=== PATIENT | male | born 1935 | race Caucasian/White ===

== ENCOUNTER 2016-10-13 05:47 | Day surgery (SDC) | payer MEDICARE, OTHER ==
[2016-10-13] MEDS ORDERED: Dextrose 5%-Lactated Ringers 1,000 ML IV SCH (06:15)
[2016-10-13] MEDS ORDERED: Lidocaine 1% 50 ML MDV ONE (06:35)
[2016-10-13] MEDS ORDERED: Bupivacaine 0.5%/EPINEPHrine 1:200,000 50 ML MDV ONE (06:35)
[2016-10-13] MEDS ORDERED: Propofol 200 MG/20 ML SDV ONE ×2 (07:11→07:50)
[2016-10-13] MEDS ORDERED: Midazolam 1 MG/ML 2 ML SDV ONE (07:12)
[2016-10-13] MEDS ORDERED: fentaNYL 100 MCG/2 ML SDV ONE (07:12)
[2016-10-13] MEDS ORDERED: Bacitracin Oint 1 GM U/D Packet ONE ×2 (07:22→07:26)
[2016-10-13 09:34] VITALS: BP 157/66
--- NOTE | 2016-10-19 08:28 | OR ---
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 PROCEDURE: 1. Excision of a skin lesion behind left ear with layered closure (lesion length 1.3 cm, incision length 2.3 cm). 2. Excision of ulcerated skin lesion, left baptist (lesion length 1.6 cm, incision length 2.1 cm). 3. Excision of ulcerated lesion, dorsum of right wrist (lesion length 1.7 cm and incision length 3.1 cm). 4. Excision of skin lesion behind the right ear (lesion length 2.3 cm and incision length 3.1 cm). ANESTHESIA: IV sedation plus local. BURNER SHAFT: JOHN Colon. INDICATIONS FOR PROCEDURE: This is an 81-year-old old male presenting with multiple skin lesions from the facial area, some of which are obviously malignant, some of which are atypical. Plan is to proceed with excision of these with layered closure, specifically with the lesion behind the left ear. This has a broad area of peeled cancerization as a central ulcerated region and the plan will be to proceed with excision of that knowing that there may be positive margins, which could be treated with additional excisions over time and/or liquid nitrogen treatment. Otherwise, potential risks of the procedure including bleeding, infection, possible need for additional treatment were reviewed in general, and the patient wishes to proceed. DETAILS OF PROCEDURE: The patient was taken to the operating room and placed in a supine position. Initially, the patient's left side of the face was prepped and draped including the ear, area behind the left ear which would begin with the area that was most surely malignant. An incision around 1.3 cm lesion measuring 2.3 cm was made and was carried down through the skin and subcutaneous tissue, and the lesion removed with what appeared to be a clear margin on its deep aspect. The incision then closed with some 5-0 Vicryl stitch deep and a 5-0 Prolene skin stitch. Attention was then taken to left baptist. In this area he had a central ulcer in it it being malignant. The lesion measured 1.6 cm in the elliptical incision 2.1 cm was made around. This was closed as per the lesion behind the ear. Next, the area of the dorsum of the right wrist was prepped and draped, and incision of 3.1 cm was made around the lesion which measured 1.7 cm. This has subsided ulceration within it and was closed as per the previous lesions and finally a skin lesion behind the right ear, which had more of atypical keratotic lesion without any ulcerations per se was removed, this lesion measured 2.3 cm and incision length was 3.1 cm. In each case, these incisions were closed with 5-0 Vicryl stitch deep and a 5-0 Prolene skin stitch, and the area had been anesthetized with 1% lidocaine mixed with Marcaine. Bacitracin was applied to each of these other than the bandage over the wrist lesion and the patient was taken to the recovery room in satisfactory condition. Mao Hare MD /[id number]
== END 2016-10-13 09:45 | disposition home or self-care (01) ==
LOC: JP.SDS 05:47
PROVIDERS: ATTEND Surgery
DX: C44.229 Squamous cell carcinoma of skin of left ear and external auricular canal (principal); C79.2 Secondary malignant neoplasm of skin; I25.10 Atherosclerotic heart disease of native coronary artery without angina pectoris; Z95.1 Presence of aortocoronary bypass graft; E03.9 Hypothyroidism, unspecified; I10 Essential (primary) hypertension
CPT/HCPCS: 11602; 11642; 11644; 12052; J2250; J2704; J3010; J7042; 88305; 88341; 88342

== ENCOUNTER 2016-11-10 16:45 | Emergency (ER) | payer MEDICARE, OTHER ==
[2016-11-10] MEDS ORDERED: Lidocaine 1% 20 ML MDV INJECT ONE (17:14)
[2016-11-10] MEDS ORDERED: Bacitracin Oint 1 GM U/D Packet TOP ONE (17:14)
[2016-11-10 17:17] VITALS: BP 191/87
--- NOTE | 2016-11-10 17:19 | EDM.PDOC ---
ED HPI GENERAL MEDICAL PROBLEM - General Chief Complaint: ENT Problem Stated Complaint: HAD SURGERY ON EAR/BLEEDING Time Seen by Provider: 11/10/16 17:13 Source of Information: Reports: Patient, Family History Limitations: Reports: No Limitations - History of Present Illness INITIAL COMMENTS - FREE TEXT/NARRATIVE: 2 days ago pt had a wider removal of area where he had skin ca. He had some bleeding last nite and he finally got it stopped. Today he was working in the garden and he started bleeding profusely. The area involved is by the left ear - post. Onset: Today Duration: Hour(s):, Getting Worse, Other ( This started bleeding very heaVILY. ) Location: Reports: Face Associated Symptoms: Reports: No Other Symptoms Left Ear Pain Score (Numeric/FACES): 7 - Related Data Allergies Allergy/AdvReac Type Severity Reaction Status Date / Time No Known Allergies Allergy Verified 11/10/16 17:17 Home Meds: Home Meds Levothyroxine 75 mcg PO DAILY 03/29/14 [History] Colchicine/Probenecid [Probenecid-Colchicine Tabs] 1 tab PO DAILY 05/31/14 [ History] Acetaminophen/HYDROcodone [[place] 325-5 MG] 1 tab PO Q4H 01/01/15 [History] Doxazosin [Cardura] 4 mg PO DAILY 01/01/15 [History] Multivitamin [Multivitamins] 1 tab PO DAILY 01/01/15 [History] Aspirin [Children's Aspirin] 81 mg PO DAILY 10/10/16 [History] Clopidogrel [Plavix] 75 mg PO DAILY 10/10/16 [History] Lisinopril 5 mg PO DAILY 10/10/16 [History] Metoprolol Tartrate 12.5 mg PO BID 10/10/16 [History] Nitroglycerin [Nitrostat] 0.4 mg SL ASDIRECTED PRN 10/10/16 [History] atorvaSTATin [Lipitor] 80 mg PO BEDTIME 10/10/16 [History] Ibuprofen 200 mg PO DAILY PRN 10/13/16 [History] Past Medical History HEENT History: Reports: Cataract, Hard of Hearing Cardiovascular History: Reports: Angina, High Cholesterol, Hypertension Genitourinary History: Reports: BPH, Renal Calculus Other Genitourinary History: trouble urinating with supra pubic cath placed in the past Musculoskeletal History: Reports: Arthritis, Gout Neurological History: Reports: Migraines, Other (See Below) Other Neuro History: 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 Endocrine/Metabolic History: Reports: Hypothyroidism Hematologic History: Reports: Blood Transfusion(s) Dermatologic History: Reports: Other (See Below) Other Dermatologic History: lesion behind ears and right wrist - Past Surgical History Cardiovascular Surgical History: Reports: Coronary Artery Bypass GI Surgical History: Reports: Colonoscopy, Hernia, Inguinal Male Surgical History: Reports: Other (See Below) Other Male Surgeries/Procedures: surgery to remove stone from left kidney Musculoskeletal Surgical History: Reports: Other (See Below) Other Musculoskeletal Surgeries/Procedures:: right ankle fracture Social & Family History - Tobacco Use Smoking Status *Q: Never Smoker Second Hand Smoke Exposure: No - Caffeine Use Caffeine Use: Reports: Coffee - Alcohol Use Days Per Week of Alcohol Use: 0 - Recreational Drug Use Recreational Drug Use: No ED ROS ENT - Review of Systems Review Of Systems: See Below Constitutional: Reports: No Symptoms HEENT: Reports: Other (PT HAD AN EXCITION OF SOME AREA OF THE EDGES WHERE IS CA WAS. tHIS WS DONE AT THE OFFICE BY dR Aiden Marie. tODAY HE WAS WORKING IN THE GARDEN AND HE STARTED TO POUR OUT BLOOD FROM THE SITE. ) Cardiovascular: Reports: No Symptoms Endocrine: Reports: No Symptoms : Reports: No Symptoms Musculoskeletal: Reports: No Symptoms Skin: Reports: No Symptoms ED EXAM, ENT - Physical Exam Exam: See Below Text/Narrative:: PT ARRIVED BLEEDING SIGNIFICANTLY FROM THE LEFT EAR WHERE HE HAD AN INCISION AND REMOVAL OF SOME AREA WHERE HE HAD A SKIN ca. Exam Limited By: No Limitations General Appearance: Alert, Anxious Ears: Other ( LEFT EAR HAS AN INCISION AND THERE IS A SIG PUMPER IN THE SITE. tHE PT IS COVERED WITH BLOOD. ) Nose: Normal Inspection Mouth/Throat: Normal Inspection Head: Atraumatic Neck: Carotid Bruit Respiratory/Chest: No Respiratory Distress Course - Vital Signs Last Recorded V/S: Last Vital Signs Temp 36.4 C 11/10/16 17:03 Pulse 72 11/10/16 17:03 Resp 16 11/10/16 17:03 BP 191/87 H 11/10/16 17:03 Pulse Ox 96 11/10/16 17:03 - Orders/Labs/Meds Meds: Medications Discontinued Medications Generic Name Dose Route Start Last Admin Trade Name Freq PRN Reason Stop Dose Admin Bacitracin 1 dose 11/10/16 17:14 11/10/16 17:32 Bacitracin Oint 1 Gm TOP 11/10/16 17:15 1 dose ONETIME ONE Administration Lidocaine HCl 20 ml 11/10/16 17:14 11/10/16 17:32 Xylocaine 1% INJECT 11/10/16 17:15 20 ml ONETIME ONE Administration - Re-Assessments/Exams Free Text/Narrative Re-Assessment/Exam: 11/10/16 17:49 dR Ivory CAM AND STITCHED THE PT UP AND RE APPLIED A PRESSURE DRESSING. Departure - Departure Time of Disposition: 17:50 Disposition: Home, Self-Care 01 Condition: Fair Clinical Impression: Bleeding from wound - Discharge Information Forms: ED Department Discharge Care Plan Goals: KEEP PREVIOUS APPTS SET UP WITH dR Marie. lEAVE THE PRESSURE DRESSING ON UNTIL TOMORROW AFTERNOON.
--- NOTE | 2016-11-11 11:42 | OR ---
DATE OF PROCEDURE: 11/10/2016 PROCEDURE: Repair of bleeding laceration of left ear, posterior. INDICATIONS: A pleasant 81-year-old male, who a had a biopsy performed of his posterior ear by Dr. Hare and the patient has developed a small amount of bleeding. PREOPERATIVE DIAGNOSIS: Postsurgical bleeding. POSTOPERATIVE DIAGNOSIS: Postsurgical bleeding. RISK: Risks, benefits, alternatives, and limitations including, but not limited to infection and bleeding were explained to the patient and he wished to proceed. PROCEDURE IN DETAIL: The patient was placed in upright position. The area was prepped and draped. The bleeding was noted to be arterial. This was closed with a 3-0 Prolene suture in a [id number] fashion. A 2nd [id number] stitch was then placed over the same location. This was inspected for 1 minute and there was no active bleeding. Bacitracin and dressings were applied. The patient will follow up with Dr. Hare and myself in the next 7 to 14 days. Tyler Meneses MD /[id number]
== END 2016-11-10 18:20 | disposition home or self-care (01) ==
LOC: JP.ED 16:45
DX: H95.41 Postprocedural hemorrhage of ear and mastoid process following a procedure on the ear and mastoid process (principal); E78.00 Pure hypercholesterolemia, unspecified; I10 Essential (primary) hypertension; M19.90 Unspecified osteoarthritis, unspecified site; E03.9 Hypothyroidism, unspecified; Z95.1 Presence of aortocoronary bypass graft; Z98.890 Other specified postprocedural states; Z79.82 Long term (current) use of aspirin; Z79.899 Other long term (current) drug therapy; Z85.828 Personal history of other malignant neoplasm of skin
CPT/HCPCS: 99283

== ENCOUNTER 2018-09-10 10:57 | Emergency (ER) | payer MEDICARE, OTHER ==
[2018-09-10] MEDS ORDERED: Sodium Chloride 0.9% 1,000 ML IV SCH (11:15)
[2018-09-10] MEDS ORDERED: Sodium Chloride 0.9% 10 ML Syringe FLUSH PRN ×2 (11:15→12:19)
--- NOTE | 2018-09-10 12:23 | EDM.PDOC ---
ED HPI GENERAL MEDICAL PROBLEM - General Chief Complaint: General Stated Complaint: FROM CLINIC LOTS OF PAIN IN CHEST AREA Time Seen by Provider: 09/10/18 12:00 Source of Information: Reports: Patient, Family (step daughter and phone call from clinic provider at [facility]) History Limitations: Reports: Other (hard of hearing and advanced age) - History of Present Illness INITIAL COMMENTS - FREE TEXT/NARRATIVE: Very pleasant 83-year-old gentleman presents from clinic today due to worsening of abdominal discomfort. Patient has had progressive worsening abdominal discomfort with increased shortness of breath with slight chest pain with exertion and difficulty catching his breath. Patient states the pain today feels different from his urinary retention symptoms. Patient is slightly nauseated has had decreased appetite and pain is worse with activity. 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 He got a reactive lymph node in the left posterior auricular posterior cervical chain in which his primary care provider offered removal the patient has chose to leave well enough alone, as the reactive lymph node is not bothersome for him. Patient states he just feels "all in" with general malaise and weakness with not feeling well over the course of the last number of weeks to months. Patient has a long-standing history of urethral strictures and urinary retention. Patient has had numerous urologic procedures. He is able to empty his bladder and has declined further treatment for urethral strictures, if he is able to urinate he does not want any procedures and a Lou catheter needs to be placed under sedation. 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) (antibiotic from Urgent care last week ) Lower Abdomen Pain Score (Numeric/FACES): 8 - Related Data Allergies Allergy/AdvReac Type Severity Reaction Status Date / Time No Known Allergies Allergy Verified 09/10/18 11:32 Home Meds: Home Meds Levothyroxine 75 mcg PO DAILY 03/29/14 [History] Colchicine/Probenecid [Probenecid-Colchicine Tabs] 1 tab PO DAILY 05/31/14 [ History] Doxazosin [Cardura] 4 mg PO DAILY 01/01/15 [History] Multivitamin [Multivitamins] 1 tab PO DAILY 01/01/15 [History] Aspirin [Children's Aspirin] 81 mg PO DAILY 10/10/16 [History] Lisinopril 20 mg PO DAILY 10/10/16 [History] Metoprolol Tartrate 12.5 mg PO BID 10/10/16 [History] Nitroglycerin [Nitrostat] 0.4 mg SL ASDIRECTED PRN 10/10/16 [History] atorvaSTATin [Lipitor] 40 mg PO BEDTIME 10/10/16 [History] amLODIPine [Norvasc] 5 mg PO DAILY 12/15/17 [History] Acetaminophen/HYDROcodone [[place] 325-5 MG] 1 - 2 tab PO Q6H PRN 10 Days #40 tab 09/10/18 [Rx] Ciprofloxacin HCl [Cipro] 500 mg PO BID 09/10/18 [History] Codeine/guaiFENesin [guaiFENesin-Codeine Syrup] 10 ml PO Q4H PRN 09/10/18 [ History] fentaNYL [Duragesic] 12 mcg TD Q72H 7 Days #3 patch 09/10/18 [Rx] Past Medical History HEENT History: Reports: Cataract, Hard of Hearing Other HEENT History: SURGICAL BX YESTERDAY BEHIND L EAR WITH POST OP BLEEDING PROBLEMS Cardiovascular History: Reports: Angina, High Cholesterol, Hypertension Genitourinary History: Reports: BPH, Renal Calculus Other Genitourinary History: trouble urinating with supra pubic cath placed in the past Musculoskeletal History: Reports: Arthritis, Gout Neurological History: Reports: Migraines, Other (See Below) Other Neuro History: 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 Endocrine/Metabolic History: Reports: Hypothyroidism Hematologic History: Reports: Blood Transfusion(s) Oncologic (Cancer) History: Reports: Other (See Below) Other Oncologic History: skin CA Lump in l lumph node. Dermatologic History: Reports: Other (See Below) Other Dermatologic History: lesion behind ears and right wrist. shingles past 3 years - Infectious Disease History Infectious Disease History: Reports: Chicken Pox, Measles, Mumps, Shingles - Past Surgical History Cardiovascular Surgical History: Reports: Coronary Artery Bypass GI Surgical History: Reports: Colonoscopy, Hernia, Inguinal Male Surgical History: Reports: Other (See Below) Other Male Surgeries/Procedures: surgery to remove stone from left kidney Musculoskeletal Surgical History: Reports: Other (See Below) Other Musculoskeletal Surgeries/Procedures:: right ankle fracture Social & Family History - Tobacco Use Smoking Status *Q: Never Smoker Second Hand Smoke Exposure: No - Caffeine Use Caffeine Use: Reports: Coffee, Soda - Recreational Drug Use Recreational Drug Use: No ED ROS GENERAL - Review of Systems Review Of Systems: See Below Constitutional: Reports: Malaise, Fatigue, Decreased Appetite HEENT: Reports: No Symptoms Respiratory: Reports: Shortness of Breath, Cough Cardiovascular: Reports: Orthopnea Endocrine: Reports: Fatigue GI/Abdominal: Reports: Abdominal Pain, Decreased Appetite, Distension, Nausea : Reports: Hematuria Skin: Reports: Lumps Neurological: Reports: Difficulty Walking, Weakness (remainder of symptoms reviewed and negative ) Psychiatric: Reports: No Symptoms Hematologic/Lymphatic: Reports: Easy Bleeding Immunologic: Reports: No Symptoms ED EXAM, GENERAL - Physical Exam Exam: See Below Exam Limited By: Other (hard of hearing and memory) General Appearance: Alert, WD/WN, Moderate Distress (due to abdominal pain) Eye Exam: Bilateral Eye: EOMI, Normal Inspection, PERRL Ears: Normal External Exam, Normal Canal, Normal TMs. No: Hearing Grossly Normal (hard of hearing ) Ear Exam: Bilateral Ear: Auricle Normal, Canal Normal, TM normal Nose: Normal Inspection, Normal Mucosa, No Blood Throat/Mouth: Normal Inspection, Normal Lips, Normal Gums, Normal Oropharynx, Normal Voice, No Airway Compromise Head: Normocephalic Neck: Normal Inspection, Supple, Lymphadenopathy (L) (postier auricular vs posterior cervical chain) Respiratory/Chest: No Respiratory Distress, Lungs Clear, Normal Breath Sounds, No Accessory Muscle Use. No: Chest Non-Tender (anterior chest discomfort reproduced with palpation) GI/Abdominal: Soft, Guarding, Rigid, Rebound, Tender (generalized with referred and rebound discomfort with focal left lower abdominal discomfort ), Abnormal Bowel Sounds (decreased ) (Male) Exam: No Hernia (acute ), Other (history of previous surgery ) Rectal (Males) Exam: Deferred Extremities: Normal Inspection, Normal Range of Motion, Non-Tender, Normal Capillary Refill, No Pedal Edema Neurological: Alert, Oriented, CN II-XII Intact, No Motor/Sensory Deficits, Memory Loss Recent Events, Abnormal Gait Psychiatric: Normal Affect, Normal Mood Skin Exam: Warm, Dry, Intact, Normal Color, No Rash EKG INTERPRETATION EKG Date: 09/10/18 Time: 13:31 Rhythm: NSR [place]: Normal P-Wave: Present QRS: Normal ST-T: Other QT: Normal Comparison: No Change (Compared to Dec 2014. No acute change noted.) Course - Vital Signs Last Recorded V/S: Last Vital Signs Temp 36.7 C 09/10/18 13:31 Pulse 83 09/10/18 14:14 Resp 16 09/10/18 13:31 BP 131/61 09/10/18 14:14 Pulse Ox 83 L 09/10/18 14:14 - Orders/Labs/Meds Orders: Active Orders 24 hr Category Date Time Status EKG Documentation Completion [RC] ASDIRECTED Care 09/10/18 11:16 Active Peripheral IV Care [RC] . DIRECTED Care 09/10/18 11:16 Active Consult to Hospice [CONS] Routine Cons 09/10/18 15:32 Active Abdomen Pelvis w Cont [CT] Stat Exams 09/10/18 11:16 Taken CULTURE BLOOD [BC] Urgent Lab 09/10/18 11:25 Received CULTURE BLOOD [BC] Urgent Lab 09/10/18 11:42 Received PATIENT RETYPE [BBK] Stat Lab 09/10/18 11:42 Results RED BLOOD CELLS LP [BBK] Stat Lab 09/10/18 11:42 Results TYPE AND SCREEN [BBK] Stat Lab 09/10/18 11:42 Results Iopamidol [Isovue-370 (76%)] Med 09/10/18 12:30 Active 75 ml IV . DIRECTED Sodium Chloride 0.9% [Normal Saline] 1,000 ml Med 09/10/18 11:15 Active IV ASDIRECTED Sodium Chloride 0.9% [Normal Saline] 100 ml Med 09/10/18 12:30 Active IV ASDIRECTED Sodium Chloride 0.9% [Saline Flush] Med 09/10/18 11:15 Active 10 ml FLUSH ASDIRECTED PRN Sodium Chloride 0.9% [Saline Flush] Med 09/10/18 12:19 Active 10 ml FLUSH ONETIME PRN fentaNYL [Duragesic] Med 09/10/18 15:30 Active 12 mcg TRDERM Q72H Blood Culture x2 Reflex Set [OM.PC] Urgent Oth 09/10/18 11:14 Ordered Peripheral IV Insertion Adult [OM.PC] Stat Oth 09/10/18 11:15 Ordered EKG 12 Lead [EK] Stat Ther 09/10/18 11:15 Ordered Medication Orders Fentanyl (Duragesic) 12 mcg TRDERM Q72H [place] Last Admin: 09/10/18 15:55 Dose: 12 mcg Sodium Chloride (Normal Saline) 1,000 mls @ 500 mls/hr IV ASDIRECTED [place] Last Admin: 09/10/18 11:46 Dose: 500 mls/hr Sodium Chloride (Normal Saline) 100 mls @ 4 mls/sec IV ASDIRECTED [place] Last Admin: 09/10/18 13:06 Dose: 4 mls/sec Iopamidol (Isovue-370 (76%)) 75 ml IV . DIRECTED [place] Last Admin: 09/10/18 13:06 Dose: 75 ml Sodium Chloride (Saline Flush) 10 ml FLUSH ASDIRECTED PRN PRN Reason: Keep Vein Open Last Admin: 09/10/18 18:17 Dose: 10 ml Sodium Chloride (Saline Flush) 10 ml FLUSH ONETIME PRN PRN Reason: per radiology protocol Last Admin: 09/10/18 13:06 Dose: 10 ml Labs: Laboratory Tests 09/10/18 09/10/18 09/10/18 Range/Units 11:15 11:42 11:42 WBC 9.5 (4.5-11.0) K/uL RBC 3.07 L (4.30-5.90) M/uL Hgb 8.2 L D (12.0-15.0) g/dL Hct 27.1 L (40.0-54.0) % MCV 88 (80-98) fL MCH 27 (27-31) pg MCHC 30 L (32-36) % Plt Count 303 (150-400) K/uL Neut % (Auto) 82 H (36-66) % Lymph % (Auto) 6 L (24-44) % [place]ine % (Auto) 11 H (2-6) % Eos % (Auto) 1 L (2-4) % Baso % (Auto) 0 (0-1) % PT 12.7 H (9.5-12.0) sec INR 1.16 (0.80-1.20) Sodium (140-148) mmol/L Potassium (3.6-5.2) mmol/L Chloride (100-108) mmol/L Carbon Dioxide (21-32) mmol/L Anion Gap (5.0-14.0) mmol/L BUN (7-18) mg/dL Creatinine (0.8-1.3) mg/dL Est Cr Clr Drug Dosing Estimated GFR (MDRD) (>60) Glucose (74-106) mg/dL Lactic Acid (0.4-2.0) mmol/L Calcium (8.5-10.1) mg/dL Total Bilirubin (0.2-1.0) mg/dL AST (15-37) U/L ALT (12-78) U/L Alkaline Phosphatase (46-116) U/L Troponin I < 0.017 (0.000-0.056) ng/mL C-Reactive Protein 19.39 H (0.0-0.3) mg/dL Total Protein (6.4-8.2) g/dL Albumin (3.4-5.0) g/dL Globulin (2.3-3.5) g/dL Albumin/Globulin Ratio (1.2-2.2) Lipase (73-393) U/L Blood Type Gel Antibody Screen Crossmatch 09/10/18 09/10/18 09/10/18 Range/Units 11:42 11:42 11:42 WBC (4.5-11.0) K/uL RBC (4.30-5.90) M/uL Hgb (12.0-15.0) g/dL Hct (40.0-54.0) % MCV (80-98) fL MCH (27-31) pg MCHC (32-36) % Plt Count (150-400) K/uL Neut % (Auto) (36-66) % Lymph % (Auto) (24-44) % Josephine % (Auto) (2-6) % Eos % (Auto) (2-4) % Baso % (Auto) (0-1) % PT (9.5-12.0) sec INR (0.80-1.20) Sodium 138 L (140-148) mmol/L Potassium 3.9 (3.6-5.2) mmol/L Chloride 104 (100-108) mmol/L Carbon Dioxide 22 (21-32) mmol/L Anion Gap 15.9 H (5.0-14.0) mmol/L BUN 38 H D (7-18) mg/dL Creatinine 1.4 H D (0.8-1.3) mg/dL Est Cr Clr Drug Dosing TNP Estimated GFR (MDRD) 48 L (>60) Glucose 112 H (74-106) mg/dL Lactic Acid 2.0 (0.4-2.0) mmol/L Calcium 8.6 (8.5-10.1) mg/dL Total Bilirubin 0.7 (0.2-1.0) mg/dL AST 86 H D (15-37) U/L ALT 37 D (12-78) U/L Alkaline Phosphatase 384 H D (46-116) U/L Troponin I (0.000-0.056) ng/mL C-Reactive Protein (0.0-0.3) mg/dL Total Protein 6.0 L (6.4-8.2) g/dL Albumin 1.9 L (3.4-5.0) g/dL Globulin 4.1 H (2.3-3.5) g/dL Albumin/Globulin Ratio 0.5 L (1.2-2.2) Lipase 48 L (73-393) U/L Blood Type O NEGATIVE Gel Antibody Screen Negative Crossmatch See Detail Meds: Medications Generic Name Dose Route Start Last Admin Trade Name Freq PRN Reason Stop Dose Admin Fentanyl 12 mcg 09/10/18 15:30 09/10/18 15:55 Duragesic TRDERM 12 mcg Q72H [place] Administration Sodium Chloride 1,000 mls @ 500 mls/hr 09/10/18 11:15 09/10/18 11:46 Normal Saline IV 500 mls/hr ASDIRECTED [place] Administration Sodium Chloride 100 mls @ 4 mls/sec 09/10/18 12:30 09/10/18 13:06 Normal Saline IV 4 mls/sec ASDIRECTED [place] Administration Iopamidol 75 ml 09/10/18 12:30 09/10/18 13:06 Isovue-370 (76%) IV 75 ml . DIRECTED [place] Administration Sodium Chloride 10 ml 09/10/18 11:15 09/10/18 18:17 Saline Flush FLUSH 10 ml ASDIRECTED PRN Administration Keep Vein Open Sodium Chloride 10 ml 09/10/18 12:19 09/10/18 13:06 Saline Flush FLUSH 10 ml ONETIME PRN Administration per radiology protocol Discontinued Medications Generic Name Dose Route Start Last Admin Trade Name [place] PRN Reason Stop Dose Admin Hydrocodone Bitart/Acetaminophen 2 tab 09/10/18 17:47 09/10/18 18:08 [place] 325-5 Mg PO 09/10/18 17:48 2 tab ONETIME ONE Administration Fentanyl 25 mcg 09/10/18 12:25 09/10/18 12:30 Sublimaze IVPUSH 09/10/18 12:26 25 mcg ONETIME ONE Administration Fentanyl 25 mcg 09/10/18 15:17 09/10/18 15:46 Sublimaze IVPUSH 09/10/18 15:18 25 mcg ONETIME ONE Administration Fentanyl 50 mcg 09/10/18 17:54 09/10/18 18:10 Sublimaze IVPUSH 09/10/18 17:55 50 mcg ONETIME ONE Administration Lidocaine 700 mg 09/10/18 12:25 09/10/18 13:29 Lidoderm 5% TOP 09/10/18 12:26 700 mg ONETIME ONE Administration - Re-Assessments/Exams Free Text/Narrative Re-Assessment/Exam: Visit Evaluation/Treatment Course: Triage and Nursing notes reviewed. EPIC reviewed for information regarding Past Medical History, Surgical History, Medications, Allergies and Immunizations. IV access requested and after successful IV access obtained patient assess for medical need of IV medication and/or fluids. Appropriate blood test ordered based on chief complaint and medical examination. Discussed medications given. I am suspicious regarding patient's acute abdominal pain that he has diverticulitis hopefully with no perforation or abscess. Bedside ultrasound was completed of his abdomen he does have a distended bladder I predict proximal a 700 mL. Patient has a history of urinary retention and significant complications from urethral strictures and which she has had a suprapubic catheter and needed to be tapped to empty his bladder previously. Patient states he has significant scarring in his urethra therefore a Lou if needed will need to be placed under anesthesia. Patient likely has bladder colonization due to recurrent urologic procedures therefore patient always has a positive urine culture and antibiotics should not be initiated unless patient has systemic symptoms including fever, nausea lightheadedness or concerns regarding early sepsis. Laboratory results reviewed. D-dimer is elevated, hemoglobin is low, INR is mildly elevated I'm concerned the patient has diverticulitis hopefully without perforation or abscess and patient may have a PE, pneumonia or underlying cancer secondary to reactive lymph node in the left postauricular/ post cervical chain. Possible skin versus long or abdominal cancer with metastatic disease. Patient has borderline renal function but IVF given to protect is renal function, I felt benefit of IV contrast outweighs risk due to acute abdomen with chest pressure concerns. 09/10/18 12:15 POINT OF CARE ULTRASOUND- Transabdominal Indication: abdominal pain, pressure concern for urinary outflow obstruction. Findings: A bedside ultrasound was performed, and interpreted by myself. Moderate bladder distention noted with discomfort over abdomen with exam. Image obtained and reviewed with the patient at bedside and saved, when possible. Patient tolerated the procedure well. 09/10/18 13:09 09/10/18 13:32 Free Text/Narrative Re-Assessment/Exam: I spoke with patient and stepdaughter regarding CT findings concerning for cancer with metastatic disease involving both liver and lungs. I offered transfer to [facility] for oncology and urology consultation regarding chemotherapy, radiation with biopsy management. Patient was also offered admission for pain management and consult hospice care locally and discuss comfort management. Patient's is tearful and understanding of the diagnosis. His stepdaughter's taking care of some of his issues at home and will sure someone is with him. I spoke to the patient a little bit further and he would really like to be discharged home. Consult for hospice care is completed, and the department. Patient is given IV dose of fentanyl along with a Duragesic patch 12 g for pain management and norco for break through pain. Patient states his pain is manageable and obviously much worse with movement. Plan is discharge home with hospice and medications for pain management. Follow up with primary care provider later this week to address any concerns and manage pain additional comfort care per hospitalist. 09/10/18 17:49 09/10/18 18:27 Departure - Departure Time of Disposition: 18:21 Disposition: DC/Tfer to Hospice - Home 50 Condition: Fair Clinical Impression: Acute abdominal pain, Enlarged lymph node in neck, Cancer associated pain, Need for comfort care - Discharge Information Prescriptions: Acetaminophen/HYDROcodone [[place] 325-5 MG] 1 - 2 tab PO Q6H PRN 10 Days #40 tab PRN Reason: Pain fentaNYL [Duragesic] 12 mcg TD Q72H 7 Days #3 patch Instructions: Abdominal Pain, Adult, Palliative Care, End-of-Life Care, Hospice Referrals: Bon Garcia MD [Primary Care Provider] - Forms: ED Department Discharge Additional Instructions: 1. Discontinue Ciprofloxacin and Robitussin AC. 2. Leave Pain patch in place until am, remove old patch and replace with new patch (your Clinic provider may change the dose or have to place two patches. 3. [place] 5/325 1-2 tablets every 4-6 hours as needed for moderate to severe pain. 4. Use Miralax and/or Colace for the prevention of Constipation with pain medications. 5. Continue current medications until directed to change of discontinue medications. 6. Follow-up with PCP with week to discuss pain management and care. - Problem List & Annotations (1) Acute abdominal pain SNOMED Code(s): 616088476 Code(s): R10.9 - UNSPECIFIED ABDOMINAL PAIN Status: Acute Current Visit: Yes (2) Enlarged lymph node in neck SNOMED Code(s): 30529971 Code(s): R59.0 - LOCALIZED ENLARGED LYMPH NODES Status: Acute Current Visit: Yes (3) Cancer associated pain SNOMED Code(s): 47494558433331 Code(s): G89.3 - NEOPLASM RELATED PAIN (ACUTE) (CHRONIC) Status: Acute Current Visit: Yes (4) Need for comfort care SNOMED Code(s): 102541740, 080499508 Code(s): ZZA6432 - Status: Acute Current Visit: Yes - My Orders Last 24 Hours: My Active Orders 09/10/18 11:14 Blood Culture x2 Reflex Set [OM.PC] Urgent 09/10/18 11:15 Sodium Chloride 0.9% [Normal Saline] 1,000 ml IV ASDIRECTED Sodium Chloride 0.9% [Saline Flush] 10 ml FLUSH ASDIRECTED PRN Peripheral IV Insertion Adult [OM.PC] Stat EKG 12 Lead [EK] Stat 09/10/18 11:16 EKG Documentation Completion [RC] ASDIRECTED Peripheral IV Care [RC] . DIRECTED Abdomen Pelvis w Cont [CT] Stat 09/10/18 11:25 CULTURE BLOOD [BC] Urgent 09/10/18 11:42 CULTURE BLOOD [BC] Urgent PATIENT RETYPE [BBK] Stat RED BLOOD CELLS LP [BBK] Stat TYPE AND SCREEN [BBK] Stat 09/10/18 12:19 Sodium Chloride 0.9% [Saline Flush] 10 ml FLUSH ONETIME PRN 09/10/18 12:30 Iopamidol [Isovue-370 (76%)] 75 ml IV . DIRECTED Sodium Chloride 0.9% [Normal Saline] 100 ml IV ASDIRECTED 09/10/18 15:30 fentaNYL [Duragesic] 12 mcg TRDERM Q72H 09/10/18 15:32 Consult to Hospice [CONS] Routine - Assessment/Plan Last 24 Hours: My Active Orders 09/10/18 11:14 Blood Culture x2 Reflex Set [OM.PC] Urgent 09/10/18 11:15 Sodium Chloride 0.9% [Normal Saline] 1,000 ml IV ASDIRECTED Sodium Chloride 0.9% [Saline Flush] 10 ml FLUSH ASDIRECTED PRN Peripheral IV Insertion Adult [OM.PC] Stat EKG 12 Lead [EK] Stat 09/10/18 11:16 EKG Documentation Completion [RC] ASDIRECTED Peripheral IV Care [RC] . DIRECTED Abdomen Pelvis w Cont [CT] Stat 09/10/18 11:25 CULTURE BLOOD [BC] Urgent 09/10/18 11:42 CULTURE BLOOD [BC] Urgent PATIENT RETYPE [BBK] Stat RED BLOOD CELLS LP [BBK] Stat TYPE AND SCREEN [BBK] Stat 09/10/18 12:19 Sodium Chloride 0.9% [Saline Flush] 10 ml FLUSH ONETIME PRN 09/10/18 12:30 Iopamidol [Isovue-370 (76%)] 75 ml IV . DIRECTED Sodium Chloride 0.9% [Normal Saline] 100 ml IV ASDIRECTED 09/10/18 15:30 fentaNYL [Duragesic] 12 mcg TRDERM Q72H 09/10/18 15:32 Consult to Hospice [CONS] Routine
[2018-09-10] MEDS ORDERED: Lidocaine 5% 700 MG Patch TOP ONE (12:25)
[2018-09-10] MEDS ORDERED: fentaNYL 100 MCG/2 ML SDV IVPUSH ONE ×3 (12:25→17:54)
[2018-09-10] MEDS ORDERED: Sodium Chloride 0.9% 100 ML IV SCH (12:30)
[2018-09-10] MEDS ORDERED: Iopamidol 755 Mg/ML 100 ML Bottle IV SCH (12:30)
--- NOTE | 2018-09-10 13:56 | CT ---
Ang Chest CLINICAL HISTORY: SOB, abdominal pain TECHNIQUE: Axial scans were obtained from the thoracic inlet to the lung bases following IV infusion of iodinated contrast. Auto dosage reduction and iterative reconstruction techniques employed. COMPARISON: December 18, 2017. FINDINGS: Lung window images show 1 cm nodule in the right lower lobe on image #101. This is new since 2018. There is a 7 mm nodule just below this in the medial basal segment. The there is a 3 mm right upper lobe nodule. There is also an 8 mm nodule in the left lower lobe There is mild hyperaeration. There is diffuse bronchiectasis. There is some patchy density in the left lower lobe which is felt to be scarring and some fibrosis. There is some calcified pleural plaque seen in the right upper lobe anteriorly.. Mediastinal window images show no evidence of pulmonary embolus. There is moderate atheromatous changes in the aorta without dissection. The no suspicious lymphadenopathy. Scans into the upper abdomen show heterogeneity in the liver which is suspicious for metastatic disease. IMPRESSION: Bilateral pulmonary nodules suspect for metastatic disease COPD with the bronchiectasis CT abdomen and pelvis with contrast CLINICAL HISTORY: SOB, abdominal pain COMPARISON: December 18, 2017. TECHNIQUE: Transverse scans were obtained from the base of the lungs to the pubic symphysis following oral contrast and IV infusion of contrast.Auto dosage reduction and iterative reconstructiontechniques employed. FINDINGS: The liver there is a 2.6 x 2.7 cm lymph node in the periportal region.. The gallbladder has a normal appearance. The spleen is lobulated but has a normal size and density. The pancreas contains a 1.7 x 1.7 cm low-attenuation nodule in the pancreatic tail. This is unchanged from prior study considering slight technical differences. The adrenal glands appear normal bilaterally . The kidneys appear hydronephrotic also similar to her study. No stones are seen. There is no abnormal enhancement. The visualized ureters have a normal course and contour there is some perinephric stranding around the lower portion of the right kidney similar to prior study. There is atheromatous calcification in the aorta. There is colonic diverticulosis without evidence of diverticulitis. The appendix has a normal contour. There is significant bladder wall thickening. There is a large superior anterior bladder diverticula. The this is near the midline. There is a smaller bladder diverticula of the superior anterior bladder to the left. There is significant enlargement of the prostate gland. IMPRESSION: Extensive liver metastasis Periportal lymphadenopathy Stable small low-attenuation nodule on the tail of the pancreas Bilateral pelvocaliectasis similar to prior study. Some of this is a prominent extrarenal pelvis. No stones are seen Moderate to generalized bladder wall thickening. There are 2 bladder diverticula described above Significantly enlarged prostate gland
[2018-09-10] MEDS ORDERED: fentaNYL 12 MCG/HR Transdermal Patch TRDERM SCH (15:30)
[2018-09-10 15:55] VITALS: BP 131/61
[2018-09-10] MEDS ORDERED: Acetaminophen/HYDROcodone 325-5 MG Tab PO ONE (17:47)
== END 2018-09-10 18:59 | disposition hospice, home (50) ==
LOC: JP.ED 10:57
DX: R10.9 Unspecified abdominal pain (principal); G89.3 Neoplasm related pain (acute) (chronic); R59.0 Localized enlarged lymph nodes; I10 Essential (primary) hypertension; E78.00 Pure hypercholesterolemia, unspecified; E03.9 Hypothyroidism, unspecified; Z79.899 Other long term (current) drug therapy
CPT/HCPCS: 36415; 71275; 74177; 80053; 83605; 83690; 84484; 85025; 85610; 86140; 86850; 86900; 86901; 86920; 86922; 87040; 93005; 96361; 96374; 96376; 99285; A9270; J3010; J7030; Q9967

== ENCOUNTER 2018-10-07 21:08 | Inpatient (IN) | payer MEDICARE, OTHER ==
[2018-10-07] MEDS ORDERED: fentaNYL 100 MCG/2 ML SDV IVPUSH ONE (21:47)
[2018-10-07] MEDS ORDERED: Sodium Chloride 0.9% 1,000 ML IV SCH ×2 (22:00→23:15)
--- NOTE | 2018-10-07 22:03 | EDM.PDOC ---
ED HPI GENERAL MEDICAL PROBLEM - General Chief Complaint: Abdominal Pain Stated Complaint: ILLNESS Time Seen by Provider: 10/07/18 21:20 Source of Information: Reports: Patient, Family History Limitations: Reports: No Limitations - History of Present Illness INITIAL COMMENTS - FREE TEXT/NARRATIVE: 83-year-old male with known metastatic liver cancer, is not accepting any treatment other than pain control is brought in by his daughter because of severe abdominal pain, leg pain, generalized malaise and weakness. He is on a fentanyl patch and taking her regular dose of hydrocodone. He claims his bowels are moving and he has not had a fever. Denies cough or hemoptysis. His main issue is "something has to be done with my pain". Unfortunately he is refusing hospice up until this point. I believe he is still full code. There is an obvious lack of connection with the reality of his illness and expectations. Onset: Unknown/Unsure Associated Symptoms: Reports: Confusion, Malaise, Shortness of Breath, Weakness. Denies: Fever/Chills abd Pain Score (Numeric/FACES): 10 - Related Data Allergies Allergy/AdvReac Type Severity Reaction Status Date / Time No Known Allergies Allergy Verified 10/07/18 21:25 Home Meds: Home Meds Levothyroxine 75 mcg PO DAILY 03/29/14 [History] Colchicine/Probenecid [Probenecid-Colchicine Tabs] 1 tab PO DAILY 05/31/14 [ History] Doxazosin [Cardura] 4 mg PO DAILY 01/01/15 [History] Multivitamin [Multivitamins] 1 tab PO DAILY 01/01/15 [History] Aspirin [Children's Aspirin] 81 mg PO DAILY 10/10/16 [History] Lisinopril 20 mg PO DAILY 10/10/16 [History] Metoprolol Tartrate 12.5 mg PO BID 10/10/16 [History] Nitroglycerin [Nitrostat] 0.4 mg SL ASDIRECTED PRN 10/10/16 [History] atorvaSTATin [Lipitor] 40 mg PO BEDTIME 10/10/16 [History] amLODIPine [Norvasc] 5 mg PO DAILY 12/15/17 [History] Acetaminophen/HYDROcodone [Frazer 325-5 MG] 1 - 2 tab PO Q6H PRN 10 Days #40 tab 09/10/18 [Rx] Codeine/guaiFENesin [guaiFENesin-Codeine Syrup] 10 ml PO Q4H PRN 09/10/18 [ History] fentaNYL [Duragesic] 12 mcg TD Q72H 7 Days #3 patch 09/10/18 [Rx] Past Medical History HEENT History: Reports: Cataract, Hard of Hearing Other HEENT History: SURGICAL BX YESTERDAY BEHIND L EAR WITH POST OP BLEEDING PROBLEMS Cardiovascular History: Reports: Angina, Heart Failure, High Cholesterol, Hypertension, IA Genitourinary History: Reports: BPH, Renal Calculus Other Genitourinary History: trouble urinating with supra pubic cath placed in the past Musculoskeletal History: Reports: Arthritis, Gout Neurological History: Reports: Migraines, Other (See Below) Other Neuro History: 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 Endocrine/Metabolic History: Reports: Hypothyroidism Hematologic History: Reports: Blood Transfusion(s) Oncologic (Cancer) History: Reports: Liver, Other (See Below) Other Oncologic History: skin CA Lump in l lymph node. Dermatologic History: Reports: Other (See Below) Other Dermatologic History: lesion behind ears and right wrist. shingles past 3 years - Infectious Disease History Infectious Disease History: Reports: Chicken Pox, Measles, Mumps, Shingles - Past Surgical History Cardiovascular Surgical History: Reports: Carotid Stents, Coronary Artery Bypass GI Surgical History: Reports: Colonoscopy, Hernia, Inguinal Male Surgical History: Reports: Other (See Below) Other Male Surgeries/Procedures: surgery to remove stone from left kidney Musculoskeletal Surgical History: Reports: Other (See Below) Other Musculoskeletal Surgeries/Procedures:: right ankle fracture Social & Family History - Tobacco Use Smoking Status *Q: Never Smoker - Caffeine Use Caffeine Use: Reports: Soda - Recreational Drug Use Recreational Drug Use: No ED ROS GENERAL - Review of Systems Review Of Systems: See Below Constitutional: Reports: Malaise, Weakness, Decreased Appetite Respiratory: Reports: Shortness of Breath GI/Abdominal: Reports: Abdominal Pain : Reports: No Symptoms Musculoskeletal: Reports: Leg Pain (Bilateral severe leg pain) Skin: Reports: Pallor Neurological: Denies: Headache ED EXAM, GENERAL - Physical Exam Exam: See Below Exam Limited By: No Limitations General Appearance: Alert, Mild Distress (Patient appears to be very uncomfortable) Eye Exam: Bilateral Eye: EOMI (No jaundice), Other (Pale conjunctivae) Respiratory/Chest: No Respiratory Distress, Lungs Clear Cardiovascular: Regular Rate, Rhythm, Tachycardia (Mild tachycardia) GI/Abdominal: Normal Bowel Sounds, Other (Any palpation to the entire abdomen causes significant discomfort, guarding is diffuse) Extremities: Other (2+ pitting edema of the right lower extremity with diffuse tenderness to palpation, 1+ edema in the left) Neurological: Alert, Oriented Psychiatric: Anxious Course - Vital Signs Last Recorded V/S: Last Vital Signs Temp 99.1 F 10/08/18 14:09 Pulse 73 10/08/18 14:09 Resp 18 10/08/18 14:09 BP 104/53 L 10/08/18 14:09 Pulse Ox 96 10/08/18 14:09 - Orders/Labs/Meds Orders: Active Orders 24 hr Category Date Time Status Oxygen Therapy [RC] PRN Care 10/07/18 23:07 Active Up With Assistance [RC] ASDIRECTED Care 10/07/18 23:07 Active VTE/DVT Education [RC] Per Unit Routine Care 10/07/18 23:07 Active Vital Signs [RC] Q4H Care 10/07/18 23:07 Active Aspirin [Halfprin] Med 10/08/18 09:00 Active 81 mg PO DAILY Doxazosin [Cardura] Med 10/08/18 09:00 Active 4 mg PO DAILY Furosemide [Lasix] Med 10/08/18 09:00 Active 40 mg IVPUSH DAILY LORazepam [Ativan] Med 10/08/18 14:22 Active 0.5 mg PO Q4H PRN Lisinopril [Prinivil] Med 10/08/18 21:00 Active 20 mg PO BEDTIME Metoprolol Tartrate [Lopressor] Med 10/08/18 09:00 Active 12.5 mg PO BID Morphine Med 10/08/18 14:22 Active 15 mg PO Q2H PRN Multivitamins w-Iron/Ca/FA/Min [Thera M Plus] Med 10/08/18 09:00 Active 1 tab PO DAILY Nitroglycerin [Nitrostat] Med 10/08/18 04:00 Active 0.4 mg SL ASDIRECTED PRN Non-Formulary Medication [NF Drug] Med 10/08/18 09:00 Active 0 each TOP BID Ondansetron [Zofran] Med 10/07/18 23:25 Active 4 mg IVPUSH Q4H PRN Patient's Own Medication [Ptom] Med 10/08/18 21:00 Active 0 each PO BEDTIME Patient's Own Medication [Ptom] Med 10/08/18 09:00 Active 1 each PO DAILY amLODIPine [Norvasc] Med 10/08/18 09:00 Active 5 mg PO DAILY atorvaSTATin [Lipitor] Med 10/08/18 21:00 Active 40 mg PO BEDTIME fentaNYL [Duragesic] Med 10/10/18 21:00 Active 25 mcg TRDERM Q72H Convert IV to Saline Lock [OM.PC] Routine Oth 10/08/18 14:21 Ordered Transfuse Red Blood Cells [COMM] Routine Oth 10/07/18 23:48 Ordered Resuscitation Status Routine Resus Stat 10/07/18 23:07 Ordered Medication Orders Amlodipine Besylate (Norvasc) 5 mg PO DAILY [facility] Last Admin: 10/08/18 09:06 Dose: 5 mg Aspirin (Halfprin) 81 mg PO DAILY [facility] Last Admin: 10/08/18 09:06 Dose: 81 mg Doxazosin Mesylate (Cardura) 4 mg PO DAILY [facility] Last Admin: 10/08/18 09:04 Dose: 4 mg Fentanyl (Duragesic) 25 mcg TRDERM Q72H [place] Furosemide (Lasix) 40 mg IVPUSH DAILY [facility] Last Admin: 10/08/18 09:03 Dose: 40 mg Gabapentin (Neurontin) 100 mg PO TID [facility] Last Admin: 10/08/18 14:34 Dose: 100 mg Levothyroxine Sodium 25 mcg/ (Levothyroxine Sodium 50 mcg) 75 mcg PO BEDTIME [place] Lisinopril (Prinivil) 20 mg PO BEDTIME [place] Lorazepam (Ativan) 0.5 mg PO Q4H PRN PRN Reason: Anxiety Metoprolol Tartrate (Lopressor) 12.5 mg PO BID [facility] Last Admin: 10/08/18 09:01 Dose: 12.5 mg Morphine Sulfate (Morphine) 15 mg PO Q2H PRN PRN Reason: Pain Last Admin: 10/08/18 14:34 Dose: 15 mg Multivitamins/Minerals (Thera M Plus) 1 tab PO DAILY [facility] Last Admin: 10/08/18 09:06 Dose: 1 tab Nitroglycerin (Nitrostat) 0.4 mg SL ASDIRECTED PRN PRN Reason: Chest Pain Atorvastatin 40 Mg* (*Pt Own) 40 mg PO BEDTIME [place] Verify Fentanyl (Patch) 0 each TOP BID [place] Last Admin: 10/08/18 09:07 Dose: Ondansetron HCl (Zofran) 4 mg IVPUSH Q4H PRN PRN Reason: Nausea/Vomiting Last Admin: 10/08/18 00:32 Dose: 4 mg Levothyroxine 75 Mcg (Tab (Ptom)) 0 each PO BEDTIME [place] Proben/[id number]/0. (5mg Tab (Ptom)) 1 each PO DAILY [place] Last Admin: 10/08/18 09:06 Dose: 1 each Labs: Laboratory Tests 10/07/18 10/07/18 10/07/18 Range/Units 21:57 21:57 21:57 WBC 15.0 H (4.5-11.0) K/uL RBC 3.05 L (4.30-5.90) M/uL Hgb 7.8 L (12.0-15.0) g/dL Hct 27.3 L (40.0-54.0) % MCV 90 (80-98) fL MCH 26 L (27-31) pg MCHC 29 L (32-36) % Plt Count 383 (150-400) K/uL Neut % (Auto) 88 H (36-66) % Lymph % (Auto) 4 L (24-44) % Cascade % (Auto) 7 H (2-6) % Eos % (Auto) 0 L (2-4) % Baso % (Auto) 0 (0-1) % PT 12.8 H (9.5-12.0) sec INR 1.17 (0.80-1.20) Sodium 133 L (140-148) mmol/L Potassium 4.2 (3.6-5.2) mmol/L Chloride 96 L (100-108) mmol/L Carbon Dioxide 21 (21-32) mmol/L Anion Gap 20.2 H (5.0-14.0) mmol/L BUN 32 H (7-18) mg/dL Creatinine 1.4 H (0.8-1.3) mg/dL Est Cr Clr Drug Dosing TNP Estimated GFR (MDRD) 48 L (>60) Glucose 135 H (74-106) mg/dL Lactic Acid (0.4-2.0) mmol/L Calcium 8.6 (8.5-10.1) mg/dL Total Bilirubin 1.2 H D (0.2-1.0) mg/dL AST 187 H D (15-37) U/L ALT 31 (12-78) U/L Alkaline Phosphatase 965 H D (46-116) U/L Total Protein 5.8 L (6.4-8.2) g/dL Albumin 1.5 L (3.4-5.0) g/dL Globulin 4.3 H (2.3-3.5) g/dL Albumin/Globulin Ratio 0.4 L (1.2-2.2) Blood Type Gel Antibody Screen Crossmatch 10/07/18 10/07/18 10/08/18 Range/Units 21:57 23:10 04:30 WBC 13.4 H (4.5-11.0) K/uL RBC 2.77 L (4.30-5.90) M/uL Hgb 7.3 L (12.0-15.0) g/dL Hct 25.1 L (40.0-54.0) % MCV 91 (80-98) fL MCH 26 L (27-31) pg MCHC 29 L (32-36) % Plt Count 306 (150-400) K/uL Neut % (Auto) (36-66) % Lymph % (Auto) (24-44) % Cascade % (Auto) (2-6) % Eos % (Auto) (2-4) % Baso % (Auto) (0-1) % PT (9.5-12.0) sec INR (0.80-1.20) Sodium (140-148) mmol/L Potassium (3.6-5.2) mmol/L Chloride (100-108) mmol/L Carbon Dioxide (21-32) mmol/L Anion Gap (5.0-14.0) mmol/L BUN (7-18) mg/dL Creatinine (0.8-1.3) mg/dL Est Cr Clr Drug Dosing Estimated GFR (MDRD) (>60) Glucose (74-106) mg/dL Lactic Acid 6.6 H (0.4-2.0) mmol/L Calcium (8.5-10.1) mg/dL Total Bilirubin (0.2-1.0) mg/dL AST (15-37) U/L ALT (12-78) U/L Alkaline Phosphatase (46-116) U/L Total Protein (6.4-8.2) g/dL Albumin (3.4-5.0) g/dL Globulin (2.3-3.5) g/dL Albumin/Globulin Ratio (1.2-2.2) Blood Type O NEGATIVE Gel Antibody Screen Negative Crossmatch See Detail 10/08/18 Range/Units 04:30 WBC (4.5-11.0) K/uL RBC (4.30-5.90) M/uL Hgb (12.0-15.0) g/dL Hct (40.0-54.0) % MCV (80-98) fL MCH (27-31) pg MCHC (32-36) % Plt Count (150-400) K/uL Neut % (Auto) (36-66) % Lymph % (Auto) (24-44) % Cascade % (Auto) (2-6) % Eos % (Auto) (2-4) % Baso % (Auto) (0-1) % PT (9.5-12.0) sec INR (0.80-1.20) Sodium 132 L (140-148) mmol/L Potassium 4.4 (3.6-5.2) mmol/L Chloride 99 L (100-108) mmol/L Carbon Dioxide 24 (21-32) mmol/L Anion Gap 13.4 (5.0-14.0) mmol/L BUN 35 H (7-18) mg/dL Creatinine 1.7 H (0.8-1.3) mg/dL Est Cr Clr Drug Dosing 31.85 Estimated GFR (MDRD) 39 L (>60) Glucose 121 H (74-106) mg/dL Lactic Acid (0.4-2.0) mmol/L Calcium 8.4 L (8.5-10.1) mg/dL Total Bilirubin (0.2-1.0) mg/dL AST (15-37) U/L ALT (12-78) U/L Alkaline Phosphatase (46-116) U/L Total Protein (6.4-8.2) g/dL Albumin (3.4-5.0) g/dL Globulin (2.3-3.5) g/dL Albumin/Globulin Ratio (1.2-2.2) Blood Type Gel Antibody Screen Crossmatch Meds: Medications Generic Name Dose Route Start Last Admin Trade Name Freq PRN Reason Stop Dose Admin Amlodipine Besylate 5 mg 10/08/18 09:00 10/08/18 09:06 Norvasc PO 5 mg DAILY [place] Administration Aspirin 81 mg 10/08/18 09:00 10/08/18 09:06 Halfprin PO 81 mg DAILY [place] Administration Doxazosin Mesylate 4 mg 10/08/18 09:00 10/08/18 09:04 Cardura PO 4 mg DAILY [place] Administration Fentanyl 25 mcg 10/10/18 21:00 Duragesic TRDERM Q72H [place] Furosemide 40 mg 10/08/18 09:00 10/08/18 09:03 Lasix IVPUSH 40 mg DAILY [place] Administration Gabapentin 100 mg 10/08/18 15:00 10/08/18 14:34 Neurontin PO 100 mg TID [place] Administration Levothyroxine Sodium 25 mcg/ 75 mcg 10/08/18 21:00 Levothyroxine Sodium 50 mcg PO BEDTIME [place] Lisinopril 20 mg 10/08/18 21:00 Prinivil PO BEDTIME [place] Lorazepam 0.5 mg 10/08/18 14:22 Ativan PO Q4H PRN Anxiety Metoprolol Tartrate 12.5 mg 10/08/18 09:00 10/08/18 09:01 Lopressor PO 12.5 mg BID [place] Administration Morphine Sulfate 15 mg 10/08/18 14:22 10/08/18 14:34 Morphine PO 15 mg Q2H PRN Administration Pain Multivitamins/Minerals 1 tab 10/08/18 09:00 10/08/18 09:06 Thera M Plus PO 1 tab DAILY [place] Administration Nitroglycerin 0.4 mg 10/08/18 04:00 Nitrostat SL ASDIRECTED PRN Chest Pain Atorvastatin 40 Mg* 40 mg 10/08/18 21:00 *Pt Own PO BEDTIME [place] Verify Fentanyl 0 each 10/08/18 09:00 10/08/18 09:07 Patch TOP Not Given BID [place] Ondansetron HCl 4 mg 10/07/18 23:25 10/08/18 00:32 Zofran IVPUSH 4 mg Q4H PRN Administration Nausea/Vomiting Levothyroxine 75 Mcg 0 each 10/08/18 21:00 Tab (Ptom) PO BEDTIME [place] Proben/[id number]/0. 1 each 10/08/18 09:00 10/08/18 09:06 5mg Tab (Ptom) PO 1 each DAILY [place] Administration Discontinued Medications Generic Name Dose Route Start Last Admin Trade Name Humphreyq PRN Reason Stop Dose Admin Fentanyl 100 mcg 10/07/18 21:47 10/07/18 21:59 Sublimaze IVPUSH 10/07/18 21:48 100 mcg ONETIME ONE Administration Fentanyl 25 mcg 10/07/18 23:15 10/07/18 23:57 Duragesic TRDERM 25 mcg Q72H [place] Administration Fentanyl 100 mcg 10/07/18 23:15 10/07/18 23:57 Sublimaze IVPUSH 100 mcg Q2H PRN Administration severe pain Fentanyl 100 mcg 10/08/18 00:47 10/08/18 02:28 Sublimaze IVPUSH 100 mcg Q1H PRN Administration severe pain Gabapentin 100 mg 10/08/18 21:00 Neurontin PO TID [place] Sodium Chloride 1,000 mls @ 500 mls/hr 10/07/18 22:00 10/07/18 21:58 Normal Saline IV 500 mls/hr ASDIRECTED [place] Administration Sodium Chloride 1,000 mls @ 25 mls/hr 10/07/18 23:15 10/08/18 01:03 Normal Saline IV 25 mls/hr ASDIRECTED [place] Infusion Lorazepam 0.5 mg 10/08/18 03:22 10/08/18 04:00 Ativan IVPUSH 0.5 mg Q1H PRN Administration Anxiety Lorazepam 0.5 mg 10/08/18 14:20 Ativan IVPUSH Q2H PRN Anxiety Morphine Sulfate 4 mg 10/08/18 03:21 10/08/18 13:23 Morphine IVPUSH 4 mg Q1H PRN Administration Pain - Re-Assessments/Exams Free Text/Narrative Re-Assessment/Exam: 10/07/18 22:05 I offered the patient more aggressive pain control but explained to him that without any treatment his pain is going to continue and would be better controlled with the help of hospice where there are less limitations. He was willing to be admitted to the hospital for pain control until a plan could be arranged. CBC, CMP, INR and lactic acid were obtained. We will start hydration with normal saline, and a consult to Dr. Garcia who kindly agreed to come in and talk with the family and patient as he is the primary provider. Admission will be considered. Departure - Departure Time of Disposition: 23:21 Disposition: Admitted As Inpatient 66 Clinical Impression: Metastatic cancer Abdominal pain Qualifiers: Abdominal location: generalized Qualified Code(s): R10.84 - Generalized abdominal pain - Discharge Information
[2018-10-07] MEDS ORDERED: fentaNYL 100 MCG/2 ML SDV IVPUSH PRN (23:15)
[2018-10-07] MEDS ORDERED: fentaNYL 25 MCG/HR Transdermal Patch TRDERM SCH (23:15)
[2018-10-07] MEDS ORDERED: Ondansetron 4 MG/2 ML SDV IVPUSH PRN (23:25)
[2018-10-07] MEDS ORDERED: NITROGLYCERIN 0.4 MG SL PRN (23:25)
[2018-10-08] MEDS: fentaNYL 100 MCG/2 ML SDV IVPUSH PRN ×2 (01:26→02:28)
--- NOTE | 2018-10-08 01:45 | HP ---
CHIEF COMPLAINT: Severe pain. HISTORY OF PRESENT ILLNESS: An 83-year-old with metastatic cancer, has progressed rapidly from last fall. He was seen in the clinic about a month ago and did not look well, was brought to the emergency room and was found to have metastatic cancer all over his body. He did desire to go home. He has been started on fentanyl patch 12 mcg with hydrocodone. Initially, it was helping but lately has not been helping. He does have better days and worse days, but today it was worse. He has had dry heaves, not able to throw anything up and not eating well, although the last few days he has been able the eat. His bowels have been moving. He feels like he has to urinate all the time. His legs have been swollen with tightness there. He has pain in his legs. His most severe pain is pain in his abdomen where he does have a number of metastases. He does feel little bit short of breath, was evaluated by emergency room physician, was given 100 mcg of fentanyl push, and it did help with his pain. PAST MEDICAL HISTORY: 1. Metastatic cancer. 2. Hypertension. 3. Hyperlipidemia. 4. BPH. 5. Hypothyroidism. CURRENT MEDICATIONS: 1. Hydrocodone-APAP 5/325 one to two every 6 hours p.r.n. 2. Amlodipine 5 mg daily. 3. Aspirin 81 mg daily. 4. Atorvastatin 80 mg daily. 5. Colchicine and probenecid 1 tablet daily. 6. Doxazosin 4 mg daily. 7. Fentanyl patch 12 mcg every three days. 8. Levothyroxine 75 mcg daily. 9. Lisinopril 20 mg daily. 10.Metoprolol 12.5 mg b.i.d. 11.Multivitamin daily. 12.Nitroglycerin p.r.n. ALLERGIES: NONE. SOCIAL HISTORY: Nonsmoker. FAMILY HISTORY: Noncontributory. REVIEW OF SYSTEMS: Denies headaches or vision changes. No upper respiratory symptoms, a little bit shortness of breath. No chest pain. He does have nausea without vomiting. He has had dry heaves. Bowels have been moving okay. Has been urinating but does get frequency at times. He has had increased swelling in his legs with quite a bit of pain there. Most of his pain is in his abdomen. No neurologic complaints reported. PHYSICAL EXAMINATION: VITAL SIGNS: Weight 95 kg, temperature 36.3, pulse 104, blood pressure 114/55, respirations 24, O2 saturation 98%. HEENT: Pharynx slightly dry mucous membranes. NECK: Supple. No significant adenopathy. LUNGS: Clear. HEART: Regular without murmurs. ABDOMEN: Soft, slightly distended with diffuse abdominal pain, fairly severe, even after the pain medication. EXTREMITIES: He does have pitting edema above the knee bilaterally. SKIN: Otherwise unremarkable, although he did look pale. LABORATORY DATA: White count 15,000, hemoglobin 7.8, platelets 383,000. PT was 12.8 with an INR of 1.17. Sodium 133, potassium 4.2, chloride 96, BUN 32, creatinine 1.4, glucose 135. Liver functions, bilirubin slightly elevated at 1.2, AST 187, ALT is normal at 31, alkaline phosphatase is elevated at 965. Lactic acid was elevated at 6.6. ASSESSMENT: 1. Metastatic cancer. It is terminal. He has declined treatment. I did talk to him because he is a little bit confused as far as what is going on. We did talk when he was in the clinic a month ago with his diagnosis of metastatic cancer, the patient declined treatment at that time, and this would be terminal. I reiterated this today which he does understand. Initially, he talked to the emergency room doctor, he wanted to be a full code, but when he talked to his daughter, he was more clear on it. Does desire to be DNR/DNI, does not want to be ventilated or have shocked. We will admit him to the hospital for pain control. We will increase his fentanyl patch and use IV fentanyl. This has worked so far to try to find the right combination. He is still awake, but more comfortable. I did talk to him about hospice which initially was not agreeable with but was open to at least have a nurse come and help. His daughter is also present and will be helping him at home also. 2. Essential hypertension. We will continue with his current medication but adjust medications as needed. 3. Anemia. Related to above. He does feel short of breath. I think that giving a couple of units of blood would temporarily help him feel better. He is agreeable to, but I did tell him and his family that it would be just temporary. His condition has worsened since the last time I saw him in the clinic. 4. Hypothyroidism. 5. Nausea and Zofran and see if that will help and make adjustments as needed. Bon Garcia MD /[id number]
[2018-10-08] MEDS ORDERED: LORazepam 2 MG/ML SDV IVPUSH PRN ×2 (03:22→14:20)
[2018-10-08] MEDS: Morphine 4 MG/ML Syringe IVPUSH PRN ×3 (03:35→13:23)
[2018-10-08] MEDS ORDERED: Nitroglycerin 0.4 MG Tab.SL SL PRN (04:00)
[2018-10-08] MEDS ORDERED: METOPROLOL TARTRATE 12.5 MG PO SCH (09:00)
[2018-10-08] MEDS ORDERED: PROBENECID PO SCH (09:00)
[2018-10-08] MEDS ORDERED: LISINOPRIL 20 MG PO SCH ×2 (09:00→21:00)
[2018-10-08] MEDS ORDERED: AMLODIPINE 5 MG PO SCH (09:00)
[2018-10-08] MEDS ORDERED: COLCHICINE PO SCH (09:00)
[2018-10-08] MEDS ORDERED: MULTIVITAMIN PO SCH (09:00)
[2018-10-08] MEDS ORDERED: LEVOTHYROXINE 75 MCG PO SCH ×2 (09:00→21:00)
[2018-10-08] MEDS ORDERED: Metoprolol Tartrate 25 MG Tab (PTOM) PO SCH (09:00)
[2018-10-08] MEDS ORDERED: DOXAZOSIN 4 MG PO SCH (09:00)
[2018-10-08] MEDS: Furosemide 40 MG/4 ML VIAL IVPUSH SCH (09:03)
[2018-10-08] MEDS: [UNRECOGNIZED DRUG - MIXTURE] PO SCH (09:06)
[2018-10-08] MEDS: Aspirin 81 MG Tab.EC PO SCH (09:06)
[2018-10-08] MEDS: Multivitamins with Iron/Calcium/Folic Acid/Minerals Tab PO SCH (09:06)
[2018-10-08] MEDS: VERIFY FENTANYL PATCH TOP SCH ×2 (09:07→22:09)
[2018-10-08] MEDS ORDERED: LORazepam 0.5 MG Tab PO PRN (14:22)
[2018-10-08] MEDS: Morphine 15 MG Tab PO PRN ×2 (14:34→19:53)
[2018-10-08] MEDS: Gabapentin 100 MG Cap PO SCH ×2 (14:34→22:08)
--- NOTE | 2018-10-08 14:34 | PCM.PN ---
- General Info Date of Service: 10/08/18 Subjective Update: Mr. Garsia is an 83-year-old gentleman with a known history of metastatic liver carcinoma. Malignancy was originally diagnosed last year, he decided not to pursue active treatment at the time of diagnosis. He was admitted through the emergency department last night because of uncontrolled pain related to his metastatic carcinoma. His dose of fentanyl patches been increased to 25 g and he is been receiving morphine and lorazepam IV as needed for pain and anxiety. With this management he reports increase feeling much better today because of improved pain control. He is been seen and evaluated by the hospice team and plan will be for hospice admission after discharge. Functional Status: Reports: Tolerating Diet, Ambulating, Urinating - Review of Systems General: Reports: Weakness, Malaise. Denies: Fever, Chills Pulmonary: Reports: No Symptoms Cardiovascular: Reports: No Symptoms Gastrointestinal: Reports: Abdominal Pain. Denies: Difficulty Swallowing, Nausea, Vomiting - Patient Data Vitals - Most Recent: Last Vital Signs Temp 99.1 F 10/08/18 14:09 Pulse 73 10/08/18 14:09 Resp 18 10/08/18 14:09 BP 104/53 L 10/08/18 14:09 Pulse Ox 96 10/08/18 14:09 Weight - Most Recent: 198 lb 10.184 oz I&O - Last 24 Hours: Intake & Output 10/07/18 10/08/18 10/08/18 22:59 06:59 14:59 Intake Total 622 1000 Output Total 200 350 Balance 422 650 Lab Results Last 24 Hours: Laboratory Results - last 24 hr 10/07/18 10/07/18 10/07/18 Range/Units 21:57 21:57 21:57 WBC 15.0 H (4.5-11.0) K/uL RBC 3.05 L (4.30-5.90) M/uL Hgb 7.8 L (12.0-15.0) g/dL Hct 27.3 L (40.0-54.0) % MCV 90 (80-98) fL MCH 26 L (27-31) pg MCHC 29 L (32-36) % Plt Count 383 (150-400) K/uL Neut % (Auto) 88 H (36-66) % Lymph % (Auto) 4 L (24-44) % [place] % (Auto) 7 H (2-6) % Eos % (Auto) 0 L (2-4) % Baso % (Auto) 0 (0-1) % PT 12.8 H (9.5-12.0) sec INR 1.17 (0.80-1.20) Sodium 133 L (140-148) mmol/L Potassium 4.2 (3.6-5.2) mmol/L Chloride 96 L (100-108) mmol/L Carbon Dioxide 21 (21-32) mmol/L Anion Gap 20.2 H (5.0-14.0) mmol/L BUN 32 H (7-18) mg/dL Creatinine 1.4 H (0.8-1.3) mg/dL Est Cr Clr Drug Dosing TNP Estimated GFR (MDRD) 48 L (>60) Glucose 135 H (74-106) mg/dL Lactic Acid (0.4-2.0) mmol/L Calcium 8.6 (8.5-10.1) mg/dL Total Bilirubin 1.2 H D (0.2-1.0) mg/dL AST 187 H D (15-37) U/L ALT 31 (12-78) U/L Alkaline Phosphatase 965 H D (46-116) U/L Total Protein 5.8 L (6.4-8.2) g/dL Albumin 1.5 L (3.4-5.0) g/dL Globulin 4.3 H (2.3-3.5) g/dL Albumin/Globulin Ratio 0.4 L (1.2-2.2) Blood Type Gel Antibody Screen Crossmatch 10/07/18 10/07/18 10/08/18 Range/Units 21:57 23:10 04:30 WBC 13.4 H (4.5-11.0) K/uL RBC 2.77 L (4.30-5.90) M/uL Hgb 7.3 L (12.0-15.0) g/dL Hct 25.1 L (40.0-54.0) % MCV 91 (80-98) fL MCH 26 L (27-31) pg MCHC 29 L (32-36) % Plt Count 306 (150-400) K/uL Neut % (Auto) (36-66) % Lymph % (Auto) (24-44) % [place] % (Auto) (2-6) % Eos % (Auto) (2-4) % Baso % (Auto) (0-1) % PT (9.5-12.0) sec INR (0.80-1.20) Sodium (140-148) mmol/L Potassium (3.6-5.2) mmol/L Chloride (100-108) mmol/L Carbon Dioxide (21-32) mmol/L Anion Gap (5.0-14.0) mmol/L BUN (7-18) mg/dL Creatinine (0.8-1.3) mg/dL Est Cr Clr Drug Dosing Estimated GFR (MDRD) (>60) Glucose (74-106) mg/dL Lactic Acid 6.6 H (0.4-2.0) mmol/L Calcium (8.5-10.1) mg/dL Total Bilirubin (0.2-1.0) mg/dL AST (15-37) U/L ALT (12-78) U/L Alkaline Phosphatase (46-116) U/L Total Protein (6.4-8.2) g/dL Albumin (3.4-5.0) g/dL Globulin (2.3-3.5) g/dL Albumin/Globulin Ratio (1.2-2.2) Blood Type O NEGATIVE Gel Antibody Screen Negative Crossmatch See Detail 10/08/18 Range/Units 04:30 WBC (4.5-11.0) K/uL RBC (4.30-5.90) M/uL Hgb (12.0-15.0) g/dL Hct (40.0-54.0) % MCV (80-98) fL MCH (27-31) pg MCHC (32-36) % Plt Count (150-400) K/uL Neut % (Auto) (36-66) % Lymph % (Auto) (24-44) % [place] % (Auto) (2-6) % Eos % (Auto) (2-4) % Baso % (Auto) (0-1) % PT (9.5-12.0) sec INR (0.80-1.20) Sodium 132 L (140-148) mmol/L Potassium 4.4 (3.6-5.2) mmol/L Chloride 99 L (100-108) mmol/L Carbon Dioxide 24 (21-32) mmol/L Anion Gap 13.4 (5.0-14.0) mmol/L BUN 35 H (7-18) mg/dL Creatinine 1.7 H (0.8-1.3) mg/dL Est Cr Clr Drug Dosing 31.85 Estimated GFR (MDRD) 39 L (>60) Glucose 121 H (74-106) mg/dL Lactic Acid (0.4-2.0) mmol/L Calcium 8.4 L (8.5-10.1) mg/dL Total Bilirubin (0.2-1.0) mg/dL AST (15-37) U/L ALT (12-78) U/L Alkaline Phosphatase (46-116) U/L Total Protein (6.4-8.2) g/dL Albumin (3.4-5.0) g/dL Globulin (2.3-3.5) g/dL Albumin/Globulin Ratio (1.2-2.2) Blood Type Gel Antibody Screen Crossmatch Med Orders - Current: Current Medications Amlodipine Besylate (Norvasc) 5 mg PO DAILY [facility] Last Admin: 10/08/18 09:06 Dose: 5 mg Aspirin (Halfprin) 81 mg PO DAILY [facility] Last Admin: 10/08/18 09:06 Dose: 81 mg Doxazosin Mesylate (Cardura) 4 mg PO DAILY [facility] Last Admin: 10/08/18 09:04 Dose: 4 mg Fentanyl (Duragesic) 25 mcg TRDERM Q72H [facility] Furosemide (Lasix) 40 mg IVPUSH DAILY [facility] Last Admin: 10/08/18 09:03 Dose: 40 mg Gabapentin (Neurontin) 100 mg PO TID [facility] Lisinopril (Prinivil) 20 mg PO BEDTIME [facility] Lorazepam (Ativan) 0.5 mg PO Q4H PRN PRN Reason: Anxiety Metoprolol Tartrate (Lopressor) 12.5 mg PO BID [facility] Last Admin: 10/08/18 09:01 Dose: 12.5 mg Morphine Sulfate (Morphine) 15 mg PO Q2H PRN PRN Reason: Pain Multivitamins/Minerals (Thera M Plus) 1 tab PO DAILY [facility] Last Admin: 10/08/18 09:06 Dose: 1 tab Nitroglycerin (Nitrostat) 0.4 mg SL ASDIRECTED PRN PRN Reason: Chest Pain Atorvastatin 40 Mg* (*Pt Own) 40 mg PO BEDTIME [facility] Verify Fentanyl (Patch) 0 each TOP BID [facility] Last Admin: 10/08/18 09:07 Dose: Not Given Ondansetron HCl (Zofran) 4 mg IVPUSH Q4H PRN PRN Reason: Nausea/Vomiting Last Admin: 10/08/18 00:32 Dose: 4 mg Levothyroxine 75 Mcg (Tab (Ptom)) 0 each PO BEDTIME [facility] Proben/Stndbj785/0. (5mg Tab (Ptom)) 1 each PO DAILY [facility] Last Admin: 10/08/18 09:06 Dose: 1 each Discontinued Medications Fentanyl (Sublimaze) 100 mcg IVPUSH ONETIME ONE Stop: 10/07/18 21:48 Last Admin: 10/07/18 21:59 Dose: 100 mcg Fentanyl (Duragesic) 25 mcg TRDERM Q72H [facility] Last Admin: 10/07/18 23:57 Dose: 25 mcg Fentanyl (Sublimaze) 100 mcg IVPUSH Q2H PRN PRN Reason: severe pain Last Admin: 10/07/18 23:57 Dose: 100 mcg Fentanyl (Sublimaze) 100 mcg IVPUSH Q1H PRN PRN Reason: severe pain Last Admin: 10/08/18 02:28 Dose: 100 mcg Sodium Chloride (Normal Saline) 1,000 mls @ 500 mls/hr IV ASDIRECTED [facility] Last Admin: 10/07/18 21:58 Dose: 500 mls/hr Sodium Chloride (Normal Saline) 1,000 mls @ 25 mls/hr IV ASDIRECTED [facility] Last Infusion: 10/08/18 01:03 Dose: 25 mls/hr Lorazepam (Ativan) 0.5 mg IVPUSH Q1H PRN PRN Reason: Anxiety Last Admin: 10/08/18 04:00 Dose: 0.5 mg Lorazepam (Ativan) 0.5 mg IVPUSH Q2H PRN PRN Reason: Anxiety Morphine Sulfate (Morphine) 4 mg IVPUSH Q1H PRN PRN Reason: Pain Last Admin: 10/08/18 13:23 Dose: 4 mg - Exam Quality Assessment: Supplemental Oxygen General: Alert, Oriented, Cooperative, Mild Distress Lungs: Clear to Auscultation, Normal Respiratory Effort Cardiovascular: Regular Rate, Regular Rhythm, No Murmurs GI/Abdominal Exam: Soft, No Organomegaly, Distended, Tender. No: Guarding, Rigid, Rebound Extremities: Non-Tender, No Pedal Edema - Problem List Review Problem List Initiated/Reviewed/Updated: Yes - My Orders Last 24 Hours: My Active Orders 10/08/18 14:21 Convert IV to Saline Lock [OM.PC] Routine 10/08/18 14:22 LORazepam [Ativan] 0.5 mg PO Q4H PRN Morphine 15 mg PO Q2H PRN 10/08/18 14:25 Patient Status [ADT] Routine 10/08/18 21:00 Gabapentin [Neurontin] 100 mg PO TID - Plan Plan:: ASSESSMENT AND PLAN METASTATIC HEPATOCELLULAR CARCINOMA- significant increase in pain over the past few weeks. Since admission pain control has been better with use of IV lorazepam and morphine. Dose of fentanyl patches been increased to 25 g. -Continue fentanyl patch at 25 g every 3 days -Morphine sulfate 15 mg by mouth every 2 hours as needed -Lorazepam 0.5 mg every 4 hours as needed for anxiety -Hospice admission after discharge PALLIATIVE CARE-he does not want to pursue aggressive treatment or management of his carcinoma. Would like to be managed for comfort only. MAINTENANCE ISSUES -DVT prophylaxis; not indicated, comfort cares only -GI prophylaxis; not indicated -Lou catheter; not indicated -Nutrition; regular diet -Nicotine dependence; not required CODE STATUS-DNR/DNI ADMISSION STATUS-patient will be changed from observation to inpatient status, expect at least a 2 night hospital stay for evaluation and management of problems as outlined above. At the time of this admission I do not reasonably expected evaluation and management of this problem will require more than a 96 hour hospital stay. DISPOSITION-anticipate discharge to home after the hospital stay. PRIMARY CARE PROVIDER-Dr. Garcia
[2018-10-08] MEDS ORDERED: ATORVASTATIN 40 MG PO SCH (21:00)
[2018-10-08] MEDS ORDERED: Levothyroxine 25 MCG, Levothyroxine 50 MCG PO SCH ×2 (21:00)
[2018-10-08] MEDS ORDERED: atorvaSTATin 20 MG Tab PO SCH (21:00)
[2018-10-08] MEDS ORDERED: Gabapentin 100 MG Cap PO SCH (21:00)
[2018-10-08] MEDS ORDERED: Lisinopril 20 MG Tab PO SCH (21:00)
[2018-10-08] MEDS: Metoprolol Tartrate 25 MG Tab PO SCH (22:05)
[2018-10-09] MEDS: Morphine 15 MG Tab PO PRN ×3 (06:32→14:35)
[2018-10-09] MEDS ORDERED: amLODIPine 5 MG Tab PO SCH (09:00)
[2018-10-09] MEDS ORDERED: Doxazosin 4 MG Tab PO SCH (09:00)
[2018-10-09] MEDS: Multivitamins with Iron/Calcium/Folic Acid/Minerals Tab PO SCH (09:36)
[2018-10-09] MEDS: Furosemide 40 MG/4 ML VIAL IVPUSH SCH (09:37)
[2018-10-09] MEDS: Aspirin 81 MG Tab.EC PO SCH (09:37)
[2018-10-09] MEDS: Metoprolol Tartrate 25 MG Tab PO SCH (09:37)
[2018-10-09] MEDS: Gabapentin 100 MG Cap PO SCH ×2 (09:38→14:32)
[2018-10-09] MEDS: VERIFY FENTANYL PATCH TOP SCH (09:39)
[2018-10-09] MEDS: [UNRECOGNIZED DRUG - MIXTURE] PO SCH (09:40)
[2018-10-09 11:09] VITALS: BP 93/41
--- NOTE | 2018-10-09 12:31 | PCM.DCSUM1 ---
Discharge Summary - Hospital Course Brief History: Mr. Garsia is an 83-year-old gentleman who was admitted through the emergency department with uncontrolled pain secondary to underlying metastatic hepatocellular carcinoma. - Discharge Data Discharge Date: 10/09/18 Discharge Disposition: DC/Tfer to Hospice - Home 50 Condition: Poor - Discharge Diagnosis/Problem(s) (1) Hepatocellular carcinoma Status: Acute Current Visit: Yes (2) Palliative care status SNOMED Code(s): 048360689 ICD Code: Z51.5 - ENCOUNTER FOR PALLIATIVE CARE Status: Acute Current Visit: Yes (3) Abdominal pain SNOMED Code(s): 06775759 ICD Code: R10.9 - UNSPECIFIED ABDOMINAL PAIN Status: Acute Current Visit : Yes Qualifiers: Abdominal location: generalized Qualified Code(s): R10.84 - Generalized abdominal pain (4) Cancer associated pain SNOMED Code(s): 69473619236348 ICD Code: G89.3 - NEOPLASM RELATED PAIN (ACUTE) (CHRONIC) Status: Acute Current Visit: No (5) Metastatic cancer SNOMED Code(s): 192236540 ICD Code: C79.9 - SECONDARY MALIGNANT NEOPLASM OF UNSPECIFIED SITE Status: Chronic Current Visit: Yes - Patient Summary/Data Hospital Course: Mr. Garsia is an 83-year-old gentleman with a known history of metastatic hepatocellular carcinoma. This was first diagnosed approximately 8-9 months ago , at that time he decided not to pursue aggressive treatment. Over the past few weeks he has become weaker and experienced increased pain in his abdomen which is felt to be secondary to the underlying malignancy. He presented to the emergency department because of uncontrolled pain. He was initially admitted to observation status and because of ongoing need for management of his pain was transferred to inpatient status during the hospitalization. Initially was given some IV fluids for hydration, then later treated with diuretic therapy for management of his peripheral edema. His dose of fentanyl patch was increased to 25 g, placed on the skin every 3 days. His hydrocortisone was discontinued and he was started on morphine sulfate 15 mg every 2 hours as needed for pain. With these changes and pain regimen his pain was well controlled by the time of discharge. During hospitalization we also discussed hospice admission. Seen by hospice staff during hospitalization and will be admitted to hospice after discharge from the hospital. Activity will be as tolerated and he will resume his usual low-sodium diet. - Patient Instructions Diet: Low Sodium Activity: As Tolerated Other/Special Instructions: Hospice admission after discharge from hospital. - Discharge Plan *PRESCRIPTION DRUG MONITORING PROGRAM REVIEWED*: Not Applicable *COPY OF PRESCRIPTION DRUG MONITORING REPORT IN PATIENT SHEREEN: Not Applicable Prescriptions/Med Rec: fentaNYL [Duragesic] 25 mcg TRDERM Q72H #10 patch Furosemide 40 mg PO DAILY #30 tablet Gabapentin [Neurontin] 100 mg PO TID #90 cap LORazepam 0.5 mg PO Q4H PRN #50 tab PRN Reason: Anxiety Morphine 15 mg PO Q2H PRN #100 tablet PRN Reason: Pain Home Medications: Home Meds Levothyroxine 75 mcg PO DAILY 03/29/14 [History] Colchicine/Probenecid [Probenecid-Colchicine Tabs] 1 tab PO DAILY 05/31/14 [ History] Doxazosin [Cardura] 4 mg PO DAILY 01/01/15 [History] Multivitamin [Multivitamins] 1 tab PO DAILY 01/01/15 [History] Aspirin [Children's Aspirin] 81 mg PO DAILY 10/10/16 [History] Lisinopril 20 mg PO DAILY 10/10/16 [History] Metoprolol Tartrate 12.5 mg PO BID 10/10/16 [History] Nitroglycerin [Nitrostat] 0.4 mg SL ASDIRECTED PRN 10/10/16 [History] amLODIPine [Norvasc] 5 mg PO DAILY 12/15/17 [History] Codeine/guaiFENesin [Robitussin AC] 10 ml PO Q4H PRN 09/10/18 [History] Furosemide 40 mg PO DAILY #30 tablet 10/09/18 [Rx] Gabapentin [Neurontin] 100 mg PO TID #90 cap 10/09/18 [Rx] LORazepam 0.5 mg PO Q4H PRN #50 tab 10/09/18 [Rx] Morphine 15 mg PO Q2H PRN #100 tablet 10/09/18 [Rx] fentaNYL [Duragesic] 25 mcg TRDERM Q72H #10 patch 10/09/18 [Rx] Referrals: Bon Garcia MD [Primary Care Provider] - - Discharge Summary/Plan Comment DC Time >30 min.: No - Patient Data Vitals - Most Recent: Last Vital Signs Temp 97.9 F 10/09/18 10:40 Pulse 73 10/09/18 10:40 Resp 18 10/09/18 10:40 BP 93/41 L 10/09/18 10:40 Pulse Ox 95 10/09/18 10:40 Weight - Most Recent: 198 lb 10.184 oz I&O - Last 24 hours: Intake & Output 10/08/18 10/09/18 10/09/18 22:59 06:59 14:59 Intake Total 440 480 330 Output Total 300 200 Balance 140 480 130 Lab Results - Last 24 hrs: Laboratory Results - last 24 hr 10/07/18 Range/Units 23:10 Crossmatch See Detail Med Orders - Current: Current Medications Amlodipine Besylate (Norvasc) 5 mg PO DAILY [facility] Last Admin: 10/09/18 09:39 Dose: 5 mg Aspirin (Halfprin) 81 mg PO DAILY [facility] Last Admin: 10/09/18 09:37 Dose: 81 mg Atorvastatin Calcium (Lipitor) 40 mg PO BEDTIME [facility] Last Admin: 10/08/18 22:05 Dose: 40 mg Doxazosin Mesylate (Cardura) 4 mg PO DAILY [facility] Last Admin: 10/09/18 09:36 Dose: 4 mg Fentanyl (Duragesic) 25 mcg TRDERM Q72H [facility] Furosemide (Lasix) 40 mg IVPUSH DAILY [facility] Last Admin: 10/09/18 09:37 Dose: 40 mg Gabapentin (Neurontin) 100 mg PO TID [facility] Last Admin: 10/09/18 09:38 Dose: 100 mg Levothyroxine Sodium 25 mcg/ (Levothyroxine Sodium 50 mcg) 75 mcg PO BEDTIME [facility] Last Admin: 10/08/18 22:04 Dose: 75 mcg Lisinopril (Prinivil) 20 mg PO BEDTIME [place] Last Admin: 10/08/18 22:08 Dose: 20 mg Lorazepam (Ativan) 0.5 mg PO Q4H PRN PRN Reason: Anxiety Metoprolol Tartrate (Lopressor) 12.5 mg PO BID [facility] Last Admin: 10/09/18 09:37 Dose: 12.5 mg Morphine Sulfate (Morphine) 15 mg PO Q2H PRN PRN Reason: Pain Last Admin: 10/09/18 09:45 Dose: 15 mg Multivitamins/Minerals (Thera M Plus) 1 tab PO DAILY [facility] Last Admin: 10/09/18 09:36 Dose: 1 tab Nitroglycerin (Nitrostat) 0.4 mg SL ASDIRECTED PRN PRN Reason: Chest Pain Verify Fentanyl (Patch) 0 each TOP BID [facility] Last Admin: 10/09/18 09:39 Dose: Not Given Ondansetron HCl (Zofran) 4 mg IVPUSH Q4H PRN PRN Reason: Nausea/Vomiting Last Admin: 10/08/18 00:32 Dose: 4 mg Proben/Heljah962/0. (5mg Tab (Ptom)) 1 each PO DAILY [facility] Last Admin: 10/09/18 09:40 Dose: 1 each Discontinued Medications Amlodipine Besylate (Norvasc) 5 mg PO DAILY [facility] Last Admin: 10/08/18 09:06 Dose: 5 mg Doxazosin Mesylate (Cardura) 4 mg PO DAILY [facility] Last Admin: 10/08/18 09:04 Dose: 4 mg Fentanyl (Sublimaze) 100 mcg IVPUSH ONETIME ONE Stop: 10/07/18 21:48 Last Admin: 10/07/18 21:59 Dose: 100 mcg Fentanyl (Duragesic) 25 mcg TRDERM Q72H [facility] Last Admin: 10/07/18 23:57 Dose: 25 mcg Fentanyl (Sublimaze) 100 mcg IVPUSH Q2H PRN PRN Reason: severe pain Last Admin: 10/07/18 23:57 Dose: 100 mcg Fentanyl (Sublimaze) 100 mcg IVPUSH Q1H PRN PRN Reason: severe pain Last Admin: 10/08/18 02:28 Dose: 100 mcg Gabapentin (Neurontin) 100 mg PO TID [facility] Sodium Chloride (Normal Saline) 1,000 mls @ 500 mls/hr IV ASDIRECTED [facility] Last Admin: 10/07/18 21:58 Dose: 500 mls/hr Sodium Chloride (Normal Saline) 1,000 mls @ 25 mls/hr IV ASDIRECTED [facility] Last Infusion: 10/08/18 01:03 Dose: 25 mls/hr Lorazepam (Ativan) 0.5 mg IVPUSH Q1H PRN PRN Reason: Anxiety Last Admin: 10/08/18 04:00 Dose: 0.5 mg Lorazepam (Ativan) 0.5 mg IVPUSH Q2H PRN PRN Reason: Anxiety Metoprolol Tartrate (Lopressor) 12.5 mg PO BID [facility] Last Admin: 10/08/18 09:01 Dose: 12.5 mg Morphine Sulfate (Morphine) 4 mg IVPUSH Q1H PRN PRN Reason: Pain Last Admin: 10/08/18 13:23 Dose: 4 mg - Exam Quality Assessment: Reports: Supplemental Oxygen General: Reports: Alert, Oriented, Cooperative, Mild Distress Lungs: Reports: Clear to Auscultation, Normal Respiratory Effort Cardiovascular: Reports: Regular Rate, Regular Rhythm, No Murmurs GI/Abdominal Exam: Soft, No Organomegaly, Distended, Tender. No: Guarding, Rigid, Rebound Extremities: Non-Tender, Pedal Edema
[2018-10-10] MEDS ORDERED: fentaNYL 25 MCG/HR Transdermal Patch TRDERM SCH (21:00)
== END 2018-10-09 16:50 | disposition hospice, home (50) | DRG 436 ==
LOC: JP.ED 21:08 → JP.MS 23:07 → OBSVTOIN 10-08 14:25
PROVIDERS: ADMIT Family Medicine; ATTEND Hospitalist
PROC: 30233N1 Transfusion of Nonautologous Red Blood Cells into Peripheral Vein, Percutaneous Approach (ICD-10-PCS; principal; 2018-10-08)
DX: C22.8 Malignant neoplasm of liver, primary, unspecified as to type (principal); C22.0 Liver cell carcinoma; C79.9 Secondary malignant neoplasm of unspecified site; G89.3 Neoplasm related pain (acute) (chronic); Z51.5 Encounter for palliative care; R10.84 Generalized abdominal pain; Z66 Do not resuscitate; I11.0 Hypertensive heart disease with heart failure; I50.9 Heart failure, unspecified; E03.9 Hypothyroidism, unspecified; D63.0 Anemia in neoplastic disease; H91.90 Unspecified hearing loss, unspecified ear; I20.9 Angina pectoris, unspecified; E78.5 Hyperlipidemia, unspecified; I25.2 Old myocardial infarction; N40.0 Benign prostatic hyperplasia without lower urinary tract symptoms; M19.90 Unspecified osteoarthritis, unspecified site; M10.9 Gout, unspecified; G43.909 Migraine, unspecified, not intractable, without status migrainosus; Z85.828 Personal history of other malignant neoplasm of skin; Z95.1 Presence of aortocoronary bypass graft; Z95.5 Presence of coronary angioplasty implant and graft; Z79.82 Long term (current) use of aspirin
CPT/HCPCS: 36415 ×2; 36430; 80048; 80053; 83605; 85025; 85027; 85610; 86850; 86900; 86901; 86920; 86922; 96361; 96374; 96375; 96376; 99285; A9270 ×6; J1940; J2060; J2270 ×3; J2405; J3010 ×4; J7030 ×2; P9016 ×2